=== PATIENT | female | born 1965 | race Caucasian/White ===

== ENCOUNTER 2016-12-12 11:51 | Outpatient (CLI) | payer OTHER ==
[2013-09-12 14:15] VITALS: O2SAT 97
== END 2016-12-12 11:52 | disposition home or self-care (01) | DRG 552 ==
LOC: CONVCARE 11:51
PROVIDERS: ATTEND Orthopaedic Surgery
DX: S16.1XXA Strain of muscle, fascia and tendon at neck level, initial encounter (principal); Z98.1 Arthrodesis status
CPT/HCPCS: 72050

== ENCOUNTER 2017-03-13 09:17 | Day surgery (SDC) | payer OTHER ==
[~2017-03-13 09:17] MED LIST: LIDOCAINE HCL 1% MPF SOL ONE; PROPOFOL 500 MG/50 ML EMU IV ONE
[2017-03-13 12:02] VITALS: BP 99/65; PULSE 56; RESP 20; TEMP 97.9; O2SAT 100
== END 2017-03-13 12:10 | disposition home or self-care (01) | DRG 951 ==
LOC: SURG 09:17
PROVIDERS: ATTEND Surgery
DX: Z12.11 Encounter for screening for malignant neoplasm of colon (principal)
CPT/HCPCS: J2001; J2704

== ENCOUNTER 2017-09-11 08:30 | Outpatient (CLI) | payer OTHER ==
[2017-03-13 12:02] VITALS: O2SAT 100
== END 2017-09-11 08:31 | disposition home or self-care (01) | DRG 556 ==
LOC: CONVCARE 08:30
PROVIDERS: ATTEND Orthopaedic Surgery
DX: M79.671 Pain in right foot (principal); M76.71 Peroneal tendinitis, right leg
CPT/HCPCS: 73630